=== PATIENT | female | born 1945 | race African-American/Black ===

== ENCOUNTER 2018-07-31 12:22 | Outpatient (CLI) | payer MEDICARE | END 2018-07-31 12:23 | disposition home or self-care (01) | LOC: BICMAMMO 12:22 | PROVIDERS: ATTEND Nurse Practitioner | DX: Z12.31 Encounter for screening mammogram for malignant neoplasm of breast (principal); R92.1 Mammographic calcification found on diagnostic imaging of breast | CPT/HCPCS: 77063; 77067 ==

== ENCOUNTER 2019-08-30 13:40 | Outpatient (CLI) | payer MEDICARE ==
--- NOTE | 2019-08-30 14:18 | BD ---
EXAM: Bone densitometry using DEXA HISTORY: 73 yo female. Screening for postmenopausal osteoporosis, asymptomatic menopausal state FINDINGS: L1--bone mineral density 1.225 g/sq cm; T score 2.1 ; Z score 4.2 L2--bone mineral density 1.150 g/sq cm; T score 1.1 ; Z score 3.4 L3--bone mineral density 1.313 g/sq cm; T score 2.1 ; Z score 4.4 L4--bone mineral density 1.2, 0.5 g/sq cm; T score 1.5 ; Z score 3.9 Total L1-L4--bone mineral density 1.231 g/sq cm; T score 1.7 ; Z score 3.9 Left femoral neck--bone mineral density0.734; T score -1.0 ; Z score 0.9 Total proximal left femur--bone mineral density 0.931; T score -0.1 ; Z score 1.6 IMPRESSION: Normal BMD.
--- NOTE | 2019-08-30 16:13 | MMO ---
Bilateral MAMMO Bilat Screen [facility]. CLINICAL HISTORY: Patient is 73 years old and is seen for screening. The patient has no family history of breast cancer. The patient has no personal history of cancer. VIEWS: The views performed were: bilateral craniocaudal with tomosynthesis and bilateral mediolateral oblique with tomosynthesis. FILMS COMPARED: The present examination has been compared to a prior imaging study performed at [facility] on 07/31/2018. This study has been interpreted with the assistance of computer-aided detection. MAMMOGRAM FINDINGS: There are scattered fibroglandular densities. Finding 1: There are stable benign appearing calcifications seen in both breasts. There are also vascular calcifications. Finding 2: There is an equal density, oval mass seen in the left breast. Finding 3: There are multiple round masses of varying size seen in the right breast. IMPRESSION: FINDING 1: STABLE CALCIFICATIONS IN BOTH BREASTS ARE BENIGN. FINDING 2: MASS IN THE LEFT BREAST REQUIRES ADDITIONAL EVALUATION. AN ULTRASOUND EXAM IS RECOMMENDED. FINDING 3: MASSES IN THE RIGHT BREAST ARE BENIGN. THE RESULTS OF THIS EXAM WERE SENT TO THE PATIENT. ACR BI-RADS Category 0 - Incomplete: Need additional imaging evaluation. [facility] will notify the patient of the need for additional imaging services. MAMMOGRAPHY NOTE: 1. A negative mammogram report should not delay a biopsy if a dominant of clinically suspicious mass is present. 2. Approximately 10% to 15% of breast cancers are not detected by mammography. 3. Adenosis and dense breasts may obscure an underlying neoplasm. Reported by: KEMAR FUNEZ MD Electonically Signed: [id number]
== END 2019-08-30 13:41 | disposition home or self-care (01) ==
LOC: BICMAMMO 13:40
PROVIDERS: ATTEND Nurse Practitioner
DX: Z12.31 Encounter for screening mammogram for malignant neoplasm of breast (principal); N63.10 Unspecified lump in the right breast, unspecified quadrant; N63.20 Unspecified lump in the left breast, unspecified quadrant; Z78.0 Asymptomatic menopausal state
CPT/HCPCS: 77063; 77067; 77080

== ENCOUNTER 2019-09-06 13:11 | Outpatient (CLI) | payer MEDICARE ==
--- NOTE | 2019-09-06 14:19 | ULT ---
ULTRASOUND LEFT BREAST LIMITED: DATE: 09/06/2019. HISTORY: A 73-year-old female with mammographic left breast mass. TECHNIQUE: Focused ultrasound of the left inner breast. FINDINGS: There is a well-circumscribed, wider than tall, nonshadowing, elongated, approximately 1.8 x 0.3 x 1. 2 cm hypoechoic lesion. It corresponds to the mammographic mass. This is consistent with a cyst. IMPRESSION: 1. BI-RADS 2 - benign findings. 2. Routine bilateral screening mammogram is recommended in 1 year. POS: JULI
== END 2019-09-06 13:12 | disposition home or self-care (01) ==
LOC: BICULT 13:11
PROVIDERS: ATTEND Nurse Practitioner
DX: N63.20 Unspecified lump in the left breast, unspecified quadrant (principal)